=== PATIENT | male | born 1965 | race African-American/Black ===

== ENCOUNTER 2023-01-24 15:05 | Inpatient (IN) | payer MEDICAID ==
[~2023-01-24] VITALS: Ht 175.3 cm; Wt 92.1 kg
[2023-01-24] MEDS ORDERED: SODIUM CHLORIDE 0.9% 1,000 ML IV ONE (15:30)
[2023-01-24 16:07] LABS: BASOPHILS % 1.1 % (0.0-2.0); EOSINOPHILS % 3.4 % (0.0-5.0); HEMATOCRIT. 51.7 % (42.0-52.0); HEMOGLOBIN. 17.5 g/dL (14.0-18.0); LYMPHOCYTES % 33.3 % (20.0-50.0); MEAN CORPUSCULAR HEMOGLOBIN 32.2 pg (28.0-32.0); MEAN CORPUSCULAR VOLUME 95.2 fL (80.0-94.0); MEAN PLATELET VOLUME 9.1 fl (7.4-10.4); MONOCYTES % 7.6 % (2.0-8.0); NEUTROPHILS % 54.6 % (40.0-76.0); PLATELET 237 x1000/uL (130-400); RED BLOOD CELL COUNT 5.43 mill/uL (4.7-6.1); RED CELL DISTRIBUTION WIDTH 13.8 % (11.6-14.6)
[2023-01-24 16:11] LABS: BG BASE EXCESS -5.8 mmol/L (-2.0-2.0); BG CARBOXYHEMOGLOBIN 6.7 % (0.5-1.5); BG DEOXYHEMOGLOBIN 5.3 % (0.0-5.0); BG FRACTION INSPIRED OXYGEN 21; BG HCO3 ACT 19.5 mmol/L (22.0-26.0); BG METHEMOGLOBIN 0.1 % (0.0-1.5); BG OXYGEN SATURATION 94.3 % (92.0-98.5); BG OXYHEMOGLOBIN 87.9 % (94.0-97.0); BG PH 7.328 (7.350-7.450); BG PO2 70.7 mmHg (75.0-100.0); BG SAMPLE SITE RIGHT BRACHIAL; BG TOTAL HEMOGLOBIN 17.2 g/dL (12.0-18.0); BG VENT MODE ROOM AIR
[2023-01-24 16:13] LABS: PROTHROMBIN TIME 10.8 sec (9.6-11.0)
[2023-01-24 16:15] LABS: CHLORIDE 104 mEq/L (98-107)
[2023-01-24 16:28] LABS: CREATINE KINASE 90 IU/L (39-308); ETHANOL BLOOD 113 mg/dL
[2023-01-24 17:09] LABS: CLARITY URINE CLEAR (CLEAR); COLOR URINE YELLOW (YELLOW); KETONES URINE NEGATIVE (NEGATIVE); LEUKOCYTE ESTERASE URINE NEGATIVE (NEGATIVE); NITRITE URINE NEGATIVE (NEGATIVE); OCCULT BLOOD URINE NEGATIVE (NEGATIVE); PH URINE 6.5 (4.5-8.0); PROTEIN URINE 1+ (NEGATIVE); SPECIFIC GRAVITY URINE 1.012 (1.005-1.030); UROBILINOGEN URINE 0.2 E.U./dL (0.2-1.0)
[2023-01-24] MEDS ORDERED: MAGNESIUM/ALUMINUM HYDROXIDE/SIMETHICONE 30ML UDC PO PRN (17:15)
[2023-01-24] MEDS ORDERED: DOCUSATE SODIUM 100MG CAPSULE PO PRN (17:15)
[2023-01-24] MEDS ORDERED: IPRATROPIUM/ALBUTEROL 0.5-3(2.5)MG/3ML NEB HHN PRN (17:15)
[2023-01-24] MEDS ORDERED: GUAIFENESIN 200MG/10ML SUGAR FREE UDC PO PRN (17:15)
[2023-01-24] MEDS ORDERED: ONDANSETRON HCL 4MG/2ML INJ IV PRN (17:15)
[2023-01-24] MEDS ORDERED: HYDROCODONE/ACETAMINOPHEN 5/325MG TABLET PO PRN (17:15)
[2023-01-24] MEDS ORDERED: ACETAMINOPHEN 325MG TABLET PO PRN ×2 (17:15)
[2023-01-24] MEDS ORDERED: ASPIRIN 325MG EC TABLET PO NR (17:30)
[2023-01-24] MEDS ORDERED: DEXTROSE 50% WATER 50ML SYRINGE IV PRN (17:30)
[2023-01-24 17:39] LABS: *AMPHETAMINES SCREEN URINE NEGATIVE (NEGATIVE); *BARBITURATES SCREEN URINE NEGATIVE (NEGATIVE); *BENZODIAZEPINES SCREEN URINE NEGATIVE (NEGATIVE); *COCAINE SCREEN URINE NEGATIVE (NEGATIVE); CANNABINOID URINE SCREEN NEGATIVE (NEGATIVE); METHADONE URINE SCREEN NEGATIVE (NEGATIVE); OPIATES URINE SCREEN NEGATIVE (NEGATIVE); PHENCYCLIDINE URINE SCREEN NEGATIVE (NEGATIVE)
[2023-01-24] MEDS ORDERED: NALOXONE HCL 0.4MG/ML VIAL IV PRN (17:45)
[2023-01-24] MEDS: BLOOD SUGAR DIAGNOSTIC STRIP TEST SCH (17:49)
[2023-01-24] MEDS: CLOPIDOGREL 75MG TABLET PO SCH (17:51)
[2023-01-24] MEDS ORDERED: INSULIN LISPRO 100 UNITS/ML SUBCUT NR (18:15)
[2023-01-24] MEDS: INSULIN LISPRO 100 UNITS/ML SUBCUT SCH ×2 (19:31→21:00)
[2023-01-24] MEDS: ATORVASTATIN CALCIUM 40MG TABLET PO SCH (21:53)
[2023-01-24] MEDS: ENOXAPARIN 40MG/0.4ML SYR SUBCUT SCH (21:53)
[2023-01-24] MEDS: FAMOTIDINE 20MG/2ML VIAL IV SCH (22:13)
[2023-01-25] VITALS (8 sets, daily range): BP systolic 118–160; BP diastolic 70–103
[2023-01-25 04:25] LABS: BASOPHILS % 1.1 % (0.0-2.0); EOSINOPHILS % 3.6 % (0.0-5.0); HEMATOCRIT. 48.8 % (42.0-52.0); HEMOGLOBIN. 16.6 g/dL (14.0-18.0); MEAN CORPUSCULAR HEMOGLOBIN 32.4 pg (28.0-32.0); MEAN CORPUSCULAR VOLUME 95.1 fL (80.0-94.0); MEAN PLATELET VOLUME 9.2 fl (7.4-10.4); MONOCYTES % 8.5 % (2.0-8.0); NEUTROPHILS % 51.8 % (40.0-76.0); PLATELET 229 x1000/uL (130-400); RED BLOOD CELL COUNT 5.14 mill/uL (4.7-6.1); RED CELL DISTRIBUTION WIDTH 13.5 % (11.6-14.6)
[2023-01-25 04:54] LABS: CHLORIDE 112 mEq/L (98-107)
[2023-01-25 05:08] LABS: HDL CHOLESTEROL 52 mg/dL (40-59); LDL CHOLESTEROL 151 mg/dL (5-100); T4 FREE 0.88 ng/dL (0.76-1.46)
[2023-01-25] MEDS: BLOOD SUGAR DIAGNOSTIC STRIP TEST SCH ×4 (06:26→21:35)
[2023-01-25] MEDS: INSULIN LISPRO 100 UNITS/ML SUBCUT SCH ×4 (06:51→21:33)
[2023-01-25] MEDS: FAMOTIDINE 20MG/2ML VIAL IV SCH (09:34)
[2023-01-25] MEDS: ASPIRIN 81MG TABLET PO SCH (09:34)
[2023-01-25] MEDS: CLONIDINE 0.1MG TABLET PO PRN ×2 (09:35→17:27)
[2023-01-25] MEDS: CLOPIDOGREL 75MG TABLET PO SCH (09:35)
[2023-01-25] MEDS ORDERED: LORAZEPAM 2MG/ML CPJ IV NR ×2 (13:00→15:30)
[2023-01-25] MEDS: FAMOTIDINE 20MG TABLET PO SCH (21:30)
[2023-01-25] MEDS: ENOXAPARIN 40MG/0.4ML SYR SUBCUT SCH (21:30)
[2023-01-25] MEDS: ATORVASTATIN CALCIUM 40MG TABLET PO SCH (21:32)
[2023-01-26] VITALS: BP 135/78
[2023-01-26 04:00] VITALS: BP 143/99
[2023-01-26] MEDS: BLOOD SUGAR DIAGNOSTIC STRIP TEST SCH ×2 (06:29→12:02)
[2023-01-26] MEDS: INSULIN LISPRO 100 UNITS/ML SUBCUT SCH ×2 (06:29→12:11)
[2023-01-26 07:48] LABS: BASOPHILS % 0.8 % (0.0-2.0); EOSINOPHILS % 3.6 % (0.0-5.0); HEMATOCRIT. 49.6 % (42.0-52.0); HEMOGLOBIN. 17.1 g/dL (14.0-18.0); LYMPHOCYTES % 31.6 % (20.0-50.0); MEAN CORPUSCULAR HEMOGLOBIN 32.3 pg (28.0-32.0); MEAN CORPUSCULAR VOLUME 93.6 fL (80.0-94.0); MEAN PLATELET VOLUME 9.4 fl (7.4-10.4); MONOCYTES % 7.2 % (2.0-8.0); NEUTROPHILS % 56.8 % (40.0-76.0); PLATELET 222 x1000/uL (130-400); RED CELL DISTRIBUTION WIDTH 13.2 % (11.6-14.6)
[2023-01-26 08:00] VITALS: BP 184/99
[2023-01-26] MEDS: FAMOTIDINE 20MG TABLET PO SCH (08:21)
[2023-01-26] MEDS: ASPIRIN 81MG TABLET PO SCH (08:21)
[2023-01-26] MEDS: CLONIDINE 0.1MG TABLET PO PRN (08:21)
[2023-01-26] MEDS: CLOPIDOGREL 75MG TABLET PO SCH (08:21)
[2023-01-26 09:50] LABS: CHLORIDE 109 mEq/L (98-107)
[2023-01-26 10:07] LABS: PHOSPHORUS 2.6 mg/dL (2.5-4.9)
[2023-01-26] MEDS ORDERED: AMLODIPINE 10MG TABLET PO SCH (11:00)
[2023-01-26] MEDS ORDERED: ASPI-1160 PO (11:20)
[2023-01-26] MEDS ORDERED: GLIM2TAB30 PO (11:20)
[2023-01-26] MEDS ORDERED: LIP40 PO (11:20)
[2023-01-26] MEDS ORDERED: CLOP75TA15 PO (11:20)
[2023-01-26] MEDS ORDERED: AMLO10TA80 PO (11:20)
[2023-01-26] MEDS ORDERED: NEED-401 SQ (11:20)
[2023-01-26] MEDS ORDERED: INSU100I28 SQ (11:20)
[2023-01-26 12:00] VITALS: BP 182/107
[2023-01-26 12:28] VITALS: BP 147/96
[2023-01-26 12:29] VITALS: BP 147/96
== END 2023-01-26 15:42 | disposition home or self-care (01) | DRG 45 ==
LOC: ER 15:20 → SUPCPDRO 16:18 → MICUSO 16:52 → EDBEDREQ 16:54 → 3WST 01-25 09:14
PROVIDERS: ADMIT Internal Medicine; ATTEND Internal Medicine
DX: I63.9 Cerebral infarction, unspecified (principal); E44.1 Mild protein-calorie malnutrition; E87.1 Hypo-osmolality and hyponatremia; R47.01 Aphasia; E78.5 Hyperlipidemia, unspecified; E11.9 Type 2 diabetes mellitus without complications; I10 Essential (primary) hypertension; Z20.822 Contact with and (suspected) exposure to COVID-19; R29.701 NIHSS score 1; F10.129 Alcohol abuse with intoxication, unspecified; F17.210 Nicotine dependence, cigarettes, uncomplicated; Z91.14 Patient's other noncompliance with medication regimen; Z28.310 Unvaccinated for COVID-19; Z79.4 Long term (current) use of insulin; Z79.82 Long term (current) use of aspirin; Z79.899 Other long term (current) drug therapy; Z79.84 Long term (current) use of oral hypoglycemic drugs; Z68.30 Body mass index [BMI] 30.0-30.9, adult
CPT/HCPCS: 36415; 36600; 70496; 70498; 70551; 71045; 80048; 80053; 80061; 80305; 80320; 81003; 82375; 82550; 82805; 82962; 83036; 83735; 84100; 84439; 84443; 84481; 84484; 85025; 86850; 86900; 87426; 93005; 93306; 93970; 97162; 97535; 99291; C9803; J1650; J1815; J2060; J3490; J7030; G0480